=== PATIENT | female | born 1955 | race Caucasian/White ===

== ENCOUNTER 2023-06-04 08:22 | Outpatient (CLI) | payer OTHER, SELFPAY | END 2023-06-04 08:23 | disposition home or self-care (01) | LOC: SCSCT 08:22 | PROVIDERS: ATTEND Plastic Surgery | DX: D16.4 Benign neoplasm of bones of skull and face (principal); M89.38 Hypertrophy of bone, other site | CPT/HCPCS: 70486 ==